=== PATIENT | male | born 1960 | race Two or more races ===

== ENCOUNTER 2021-03-29 17:48 | Inpatient (IN) | payer MEDICAID ==
[~2021-03-29] VITALS: Ht 175.3 cm; Wt 91.2 kg
--- NOTE | 2021-03-29 18:20 | NUR ---
TO ER BED 3, C/O ABDOMINAL PAIN NAUSEA AND VOMITING SINCE YESTERDAY, CHANGED INTO A GOWN ATTACHED TO MONITOR, BREATHING EVEN AND NON LABORED.
--- NOTE | 2021-03-29 18:30 | NUR ---
LAB AT BEDSIDE
[2021-03-29 18:42] LABS: BASOPHILS # (AUTO) 0.1 K/uL (0.0-0.2); BASOPHILS % (AUTO) 1.7 % (0.0-2.0); EOSINOPHILS % (AUTO) 0.6 % (0.0-6.0); HEMATOCRIT 50 % (39-51); HEMOGLOBIN 16.4 g/dL (13.5-17.5); LYMPHOCYTES # (AUTO) 1.2 K/uL (0.8-4.8); LYMPHOCYTES % (AUTO) 23.1 % (20.0-44.0); MEAN CORPUSCULAR HGB CONC 33 g/dl (31.0-36.0); MEAN CORPUSCULAR VOLUME 90 fL (80-96); MONOCYTES # (AUTO) 0.8 K/uL (0.1-1.30); MONOCYTES % (AUTO) 14.6 % (2.0-12.0); NEUTROPHILS # (AUTO) 3.1 K/uL (1.8-8.9); PLATELET COUNT (AUTO) 294 K/uL (150-450); RED BLOOD CELL COUNT(AUTO) 5.55 MIL/uL (4.5-6.0); WHITE BLOOD COUNT (AUTO) 5.2 K/uL (4.3-11.0)
[2021-03-29 18:52] LABS: CALCIUM, SERUM 9.6 mg/dL (8.5-10.1); CARBON DIOXIDE 27 mmol/L (21-32); CHLORIDE 100 mmol/L (98-107); CREATININE 1.4 mg/dL (0.6-1.3); GLUCOSE 150 mg/dL (74-106); POTASSIUM 3.8 mmol/L (3.5-5.1); SODIUM SERUM 139 mmol/L (136-145); UREA NITROGEN, BLOOD 26 mg/dL (7-18)
[2021-03-29 18:58] LABS: ALANINE AMINOTRANSFERASE 18 U/L (12-78); ALBUMIN 4.3 g/dL (3.4-5.0); ALKALINE PHOSPHATASE 66 U/L (46-116); ASPARTATE AMINOTRANSFERASE 18 U/L (15-37); BILIRUBIN,DIRECT 0.2 mg/dL (0.0-0.2); BILIRUBIN,TOTAL 1.2 mg/dL (0.2-1.0); LIPASE 51 U/L (73-393); TOTAL PROTEIN, SERUM 8.1 g/dL (6.4-8.2)
--- NOTE | 2021-03-29 19:09 | NUR ---
URINE SENT TO LAB
[2021-03-29] MEDS ORDERED: IOHEXOL-300 100 ML VIAL IV ONE (19:15)
[2021-03-29] MEDS ORDERED: IV NS 0.9% 250 ML IV ONE (19:16)
[2021-03-29 19:41] LABS: BILIRUBIN,URINE MODERATE (NEGATIVE); COLOR,URINE DARK YELLOW (YELLOW); LEUKOCYTE ESTERASE ,URINE Negative (NEGATIVE); NITRITE, URINE Negative (NEGATIVE); PROTEIN,URINE 30 mg/dl (NEGATIVE); UGLUCOSE Negative (NEGATIVE); UROBILINOGEN,URINE 0.2 EU/dL (0.2)
[2021-03-29 19:43] LABS: BACTERIA,URINE Rare /HPF (None Seen); RBC,URINE NONE SEEN /HPF (0-2); SQUAMOUS EPITHELIAL CELL,UR Few /HPF (None Seen); WBC,URINE NONE SEEN /HPF (0-3)
[2021-03-29] MEDS ORDERED: LIDOCAINE VISCOUS 2% UD 15 ML UDC ONE (20:47)
--- NOTE | 2021-03-29 21:03 | NUR ---
NG TUBE Fr 16 PLACED, CONNECTED TO INTERMITTED SUCTION, AUSCULTATION FOR PLACEMENT.
--- NOTE | 2021-03-29 22:26 | NUR ---
MS 323-1
[2021-03-29] MEDS ORDERED: Z GUARD REMEDY 2 OZ OINT TP PRN (22:30)
[2021-03-29] MEDS ORDERED: MAGNESIUM HYDROXIDE 30 ML UDC PO PRN (22:30)
[2021-03-29] MEDS ORDERED: ONDANSETRON HCL/PF 4 MG/2 ML VIAL IVP PRN (22:30)
--- NOTE | 2021-03-29 22:55 | NUR ---
REPORT GIVEN TO JANAY CHRISTIE
--- NOTE | 2021-03-30 01:11 | NUR ---
MS 102
--- NOTE | 2021-03-30 01:20 | NUR ---
REPORT GIVEN TO JANAY GROSSMAN
--- NOTE | 2021-03-30 01:33 | NUR ---
PATIENT TRANSFERRED , VSS, PATIENT IN NO ACUTE DISTRESS.
--- NOTE | 2021-03-30 01:45 | NUR ---
MS RN ADMITTING NOTES PT ARRIVED TO UNIT VIA GURNEY PT WS ABLE TO WALK TO BED PT HAS STEADY GAIT. PT A/O X4 UGANDAN AND BULGARIAN SPEAKING. NO PAIN OR DISCOMFORT NOTED OR REPORTED AT THIS TIME. PT NOTED WITH NG TUBE 16 FR TO THE RIGHT NOSTRIL. PT HAS IV ACCESS ON THE RAC #18G PATENT FLUSHING WELL. ABDOMEN NON TENDER AND SOFT. PT ORIENTED TO ROOM AND UNIT CALL LIGHT PLACED WITHIN REACH PT MAINTAINED NPO FOR THE TIME BEING PT FOR CONSULT WITH SURGEON IN THE AM REGARDING SBO. ASPIRATION PRECAUTIONS MAINTAINED HOB ELEVATED AT ALL TIMES.PT SKIN INTACT WARM NO DISCOLORATION OR WOUNDS SEEN OR REPORTED. WILL CONTINUE TO MONITOR. Addendum: 03/30/21 at 0236 by NGOC BRONSON RN IV SITE IS LAC
[2021-03-30 02:30] VITALS: BP 145/83
[2021-03-30 02:31] VITALS: BP 145/83
[2021-03-30] MEDS: IV D5/0.45 NACL 1,000 ML IV PRN ×2 (02:36→18:03)
[2021-03-30 04:09] VITALS: BP 145/83
[2021-03-30 04:38] VITALS: BP 132/87
[2021-03-30] MEDS: MORPHINE SULFATE INJ 2 MG/ML DISP.SYRIN IV PRN ×3 (05:24→18:55)
[2021-03-30 06:25] LABS: BASOPHILS % (AUTO) 0.5 % (0.0-2.0); EOSINOPHILS % (AUTO) 1.4 % (0.0-6.0); HEMATOCRIT 46 % (39-51); HEMOGLOBIN 15.7 g/dL (13.5-17.5); LYMPHOCYTES # (AUTO) 1.5 K/uL (0.8-4.8); LYMPHOCYTES % (AUTO) 25.3 % (20.0-44.0); MEAN CORPUSCULAR HGB CONC 34 g/dl (31.0-36.0); MEAN CORPUSCULAR VOLUME 89 fL (80-96); MONOCYTES # (AUTO) 0.8 K/uL (0.1-1.30); NEUTROPHILS # (AUTO) 3.5 K/uL (1.8-8.9); NEUTROPHILS % (AUTO) 58.8 % (43.0-81.0); PLATELET COUNT (AUTO) 261 K/uL (150-450); RED BLOOD CELL COUNT(AUTO) 5.16 MIL/uL (4.5-6.0); WHITE BLOOD COUNT (AUTO) 5.9 K/uL (4.3-11.0)
--- NOTE | 2021-03-30 06:36 | NUR ---
RN NOTES PT A/O X4 GUINEAN AND DIVEHI SPEAKING. NO PAIN OR DISCOMFORT NOTED OR REPORTED AT THIS TIME. PT WITH NG TUBE 16 FR TOT HE RIGHT NOSTRIL WITH LOW INTERMITTENT SUCTION OUTPUT OF 100 ML. PT HAS IV ACCESS ON THE RAC #18G RUNNING D5 1/2 NS @ 50ML/HR CALL LIGHT PLACED WITHIN REACH PT MAINTAINED NPO FOR THE TIME BEING PT FOR CONSULT WITH SURGEON IN THE AM REGARDING SBO. ASPIRATION PRECAUTIONS MAINTAINED HOB ELEVATED AT ALL TIMES. WILL ENDORSE CARE TO DAY SHIFT NURSE.
[2021-03-30] MEDS ORDERED: ACET325T53 PO (07:37)
--- NOTE | 2021-03-30 08:06 | NUR ---
RN OPENING NOTES RECEIVED PATIENT AWAKE IN BED, ALERT AND ORIENTED X 4, SLOVAK AND GERMAN SPEAKING. NO SOB. BREATHING IS EVEN AND UNLABORED. NO S/S OF DISTRESS NOTED. PT ON RIGHT NG TUBE PLACEMENT WITH LOW INTERMITTENT SUCTIONING.IV ACCESS RAC#18 PATENT AND INTACT. SAFETY MEASURES IN PLACE WITH BED LOCKED AT LOW POSITION AND SIDE RAILS UP X2. CALL LIGHT IS WITHIN REACH. WILL CONTINUE TO MONITOR THROUGHOUT SHIFT.
[2021-03-30] MEDS: PANTOPRAZOLE 40 MG VIAL IV SCH (08:58)
[2021-03-30 09:27] LABS: THYROID STIMULATING HORMONE 0.439 uIU/mL (0.358-3.74)
[2021-03-30 09:28] LABS: POTASSIUM 4.4 mmol/L (3.5-5.1)
[2021-03-30 09:29] LABS: BILIRUBIN,DIRECT 0.1 mg/dL (0.0-0.2); CALCIUM, SERUM 8.9 mg/dL (8.5-10.1); CREATININE 1.3 mg/dL (0.6-1.3); PHOSPHORUS 4.4 mg/dL (2.5-4.9)
[2021-03-30 09:30] LABS: MAGNESIUM 2.2 mg/dL (1.8-2.4)
[2021-03-30 12:00] VITALS: BP 134/90
[2021-03-30] MEDS ORDERED: DIATR MEGLU/DIATRIZOATE SODIUM 120 ML BOTTLE (GASTROGRAPHIN) ONE (15:57)
--- NOTE | 2021-03-30 18:15 | NUR ---
RN NOTES PT RETURNED FROM XRAY SMALL BOWEL FOLLOW THROUGH. NG TUBE ACCIDENTALLY REMOVED DURING PROCEDURE PER X-RAY TECH.
--- NOTE | 2021-03-30 18:44 | NUR ---
RN CLOSING NOTES PT IS RESTING IN BED COMFORTABLY WITH AT BEDSIDE. NO S/S OF DISTRESS NOTED. NO SOB. BREATHING IS EVEN AND UNLABORED. IV ACCESS LAC#18 PATENT AND INTACT WITH D5 1/2 NS RUNNING @50MLS/HR. SAFETY MEASURES MAINTAINED WITH BED AT LOW POSITION AND SIDE RAILS UP X2. CALL LIGHT IS WITHIN REACH. ALL NEEDS MET THROUGHOUT SHIFT. WILL ENDORSE CONTINUITY OF CARE TO ONCOMING SHIFT.
--- NOTE | 2021-03-30 18:59 | NUR ---
RN NOTES PT REFUSED REINSERTION OF NG TUBE AT THIS TIME AND STATES HE WOULD LIKE IT OFF FOR NOW IT IS UNCOMFORTABLE. WILL ENDORSE TO ONCOMING SHIFT FOR REINSERTION WHEN PT IS READY.
[2021-03-30 20:00] VITALS: BP 133/84
--- NOTE | 2021-03-31 | NUR ---
RN NOTE PT AGREEABLE TO REINSERT NGT. REINSERTED NGT #[id number] AND LYRIC WELL. XRAY WILL BE DONE TO VERIFY PLACEMENT.
--- NOTE | 2021-03-31 00:15 | NUR ---
RN NOTE XRAY ABD DONE. AWAITING RESULT
[2021-03-31 04:00] VITALS: BP 119/85
[2021-03-31] MEDS: MORPHINE SULFATE INJ 2 MG/ML DISP.SYRIN IV PRN (04:17)
--- NOTE | 2021-03-31 07:20 | NUR ---
RN CLOSING NOTE PT RESTING IN BED, DENIES PAIN AT THIS TIME. RESPIRATIONS EVEN/UNLABORED. WITH NGT IN PLACE, CONNECTED TO LOW INTERMITTENT SUCTION. KEPT HOB ELEVATED. PT IS AMBULATORY W/STEADY GAIT AND USED BR NEEDED. NO ACUTE EVENTS DURING THE NIGHT. ENDORSED TO NEXT SHIFT NURSE.
--- NOTE | 2021-03-31 07:34 | NUR ---
RN OPENING NOTE PATIENT RECEIVED IN BED, SLEEPING. ON ROOM AIR WITH NO SIGNS OF LABORED BREATHING. NG TUBE IN PLACE AND ON SUCTION. L AC 18G PIV IN PLACE AND RUNNING D5 1/2NS AT 50CC/HR. BED LOCKED AND IN LOWEST POSITION, 3 SIDE RAILS UP, CALL LIGHT WITHIN REACH. WILL CONTINUE TO MONITOR.
[2021-03-31 08:00] VITALS: BP 131/82
[2021-03-31] MEDS: PANTOPRAZOLE 40 MG VIAL IV SCH (08:31)
[2021-03-31 12:00] VITALS: BP 131/82
[2021-03-31 16:00] VITALS: BP 130/79
--- NOTE | 2021-03-31 19:30 | NUR ---
RN CLOSING NOTE PATIENT IN BED, AWAKE, A&O X4. PATIENT ON ROOM AIR WITH NO SIGNS OF LABORED BREATHING. NG TUBE IN PLACE. L AC PIV IN PLACE AND PATENT, RUNNING D5 1/2NS AT 50CC/HR. BED LOCKED AND IN LOWEST POSITION, 3 SIDE RAILS UP, CALL LIGHT WITHIN REACH. WILL ENDORSE TO SALES AND SERVICE ADVISOR NURSE
--- NOTE | 2021-03-31 19:45 | NUR ---
RN OPENING NOTE, RECEIVED PT IN BED, AWAKE A/O X4 FAMILY AT BEDSIDE, ON ROOM AIR WITH NO SOB/ACUTE DISTRESS NOTED, BREATHING EVEN AND UNLABORED, DENIES DISCOMFORT, DENIES N/V, NG TUBE IN PLACE CLAMPED, PATIENT IN LIQUID DIET LYRIC, IV LINE IN LEFT AC 18G RUNNING D5 1/2NS AT 50CC/HR, NO S/S OF INFILTRATION NOTED, BED LOCKED AND IN LOWEST POSITION, 2 SIDE RAILS UP, CALL LIGHT WITHIN REACH, WILL CONTINUE TO MONITOR CLOSELY.
[2021-03-31 20:00] VITALS: BP 133/86
[2021-03-31] MEDS: MAG HYDROX/AL HYDROX/SIMETH 30 ML UDC PO PRN (20:47)
[2021-03-31] MEDS: ACETAMINOPHEN 325 MG TABLET PO PRN (20:47)
[2021-04-01 04:00] VITALS: BP 141/77
[2021-04-01 06:17] LABS: BASOPHILS % (AUTO) 0.5 % (0.0-2.0); EOSINOPHILS % (AUTO) 2.4 % (0.0-6.0); HEMATOCRIT 43 % (39-51); HEMOGLOBIN 14.3 g/dL (13.5-17.5); LYMPHOCYTES # (AUTO) 1.4 K/uL (0.8-4.8); LYMPHOCYTES % (AUTO) 26.6 % (20.0-44.0); MEAN CORPUSCULAR HGB CONC 33 g/dl (31.0-36.0); MEAN CORPUSCULAR VOLUME 90 fL (80-96); MONOCYTES # (AUTO) 0.7 K/uL (0.1-1.30); MONOCYTES % (AUTO) 12.6 % (2.0-12.0); NEUTROPHILS % (AUTO) 57.9 % (43.0-81.0); PLATELET COUNT (AUTO) 247 K/uL (150-450); RED BLOOD CELL COUNT(AUTO) 4.74 MIL/uL (4.5-6.0); WHITE BLOOD COUNT (AUTO) 5.2 K/uL (4.3-11.0)
--- NOTE | 2021-04-01 06:42 | NUR ---
RN CLOSING NOTE, PT IN BED, AWAKE A/O X4 FAMILY, CONT ON ROOM AIR WITH NO SOB/ACUTE DISTRESS NOTED, BREATHING EVEN AND UNLABORED, DENIES DISCOMFORT, DENIES N/V, AND PAIN AT THIS TIME, NG TUBE IN PLACE CLAMPED, PATIENT IN LIQUID DIET LYRIC, NO SIGNIFICANT CHANGE IN CONDITION DURING THE NIGHT, BED LOCKED AND IN LOWEST POSITION, 2 SIDE RAILS UP, CALL LIGHT WITHIN REACH, WILL ENDORSE CONTINUITY OF CARE TO ONCOMING NURSE.
[2021-04-01 06:47] LABS: CALCIUM, SERUM 8.4 mg/dL (8.5-10.1); CREATININE 0.9 mg/dL (0.6-1.3); MAGNESIUM 2.2 mg/dL (1.8-2.4); PHOSPHORUS 3.4 mg/dL (2.5-4.9); POTASSIUM 3.9 mmol/L (3.5-5.1)
--- NOTE | 2021-04-01 07:28 | NUR ---
RN OPENING NOTE PATIENT RECEIVED IN BED, ASLEEP. ON ROOM AIR WITH NO SIGNS OF LABORED BREATHING AT THIS TIME. R NOSTRIL NG TUBE IN PLACE. L AC 18G IN PLACE RUNNING D5 1/2NS AT 50CC/HR. BED LOCKED AND IN LOWEST POSITION, 3 SIDE RAILS UP, CALL LIGHT WITHIN REACH. WILL CONTINUE TO MONITOR.
[2021-04-01] MEDS: PANTOPRAZOLE 40 MG VIAL IV SCH (08:39)
[2021-04-01] MEDS: IV D5/0.45 NACL 1,000 ML IV PRN (09:58)
--- NOTE | 2021-04-01 12:37 | NUR ---
RN NOTE NG TUBE D/C PER ORDER.
[2021-04-01] MEDS: ACETAMINOPHEN 325 MG TABLET PO PRN ×2 (13:54→19:28)
[2021-04-01] MEDS: MAG HYDROX/AL HYDROX/SIMETH 30 ML UDC PO PRN ×2 (13:54→19:29)
[2021-04-01 16:00] VITALS: BP 126/78
--- NOTE | 2021-04-01 18:51 | NUR ---
RN CLOSING NOTE PATIENT AWAKE, A&OX4. ON ROOM AIR WITH NO SIGNS OF LABORED BREATHING AT THIS TIME. L AC 18G IN PLACE RUNNING D5 1/2 NS AT 50 CC/HR. BED LOCKED AND IN LOWEST POSITION, 3 SIDE RAILS UP, CALL LIGHT WITHIN REACH. ALL SAFETY MEASURES IMPLEMENTED. WILL ENDORSE TO HAND BENDER NURSE.
--- NOTE | 2021-04-01 19:45 | NUR ---
RN OPENING NOTE, PATIENT AWAKE, A/OX4, AT ROOM AIR , NO SIGNS SOB/ACUTE DISTRESS NOTED AT THIS TIME, DAUGHTER AT BEDSIDE, LEFT AC 18G REMOVED AT THIS TIME, PATIENT IS BEING DISCHARGE, DISCHARGE PAPERWORK GIVEN TO PATIENT, HE TOOK ALL BELONGINGS WITH HIM AND SIGNED THE BELONGINGS INVENTORY THAT HE RECEIVED ALL, DISCHARGE INSTRUCTIONS PROVIDED, AND HE VERBALIZED UNDERSTANDING, VS 119/63, 60, 18, 98.1, 95% RA, PATIENT LEFT IN COMPANY OF DAUGHTER AT THIS TIME, THEY LEAVING IN PRIVATE VEHICLE.
[2021-04-02] MEDS ORDERED: PANTOPRAZOLE 40 MG/PACK PACK GT SCH (09:00)
== END 2021-04-01 20:42 | disposition home or self-care (01) | DRG 247 ==
LOC: ER 17:51 → MED 23:03 → MEDSG1 03-30 01:11
PROVIDERS: ADMIT Registered Nurse; ATTEND Nurse Practitioner Acute Care
DX: K56.609 Unspecified intestinal obstruction, unspecified as to partial versus complete obstruction (principal); N17.0 Acute kidney failure with tubular necrosis; E86.0 Dehydration; E66.9 Obesity, unspecified; I50.9 Heart failure, unspecified; Z20.822 Contact with and (suspected) exposure to COVID-19; S31.139S Puncture wound of abdominal wall without foreign body, unspecified quadrant without penetration into peritoneal cavity, sequela; W34.00XS Accidental discharge from unspecified firearms or gun, sequela; Z98.890 Other specified postprocedural states; Z88.0 Allergy status to penicillin; K40.90 Unilateral inguinal hernia, without obstruction or gangrene, not specified as recurrent; K42.9 Umbilical hernia without obstruction or gangrene; K43.9 Ventral hernia without obstruction or gangrene; K57.90 Diverticulosis of intestine, part unspecified, without perforation or abscess without bleeding; K76.0 Fatty (change of) liver, not elsewhere classified; N32.89 Other specified disorders of bladder; Z68.31 Body mass index [BMI] 31.0-31.9, adult; Z96.659 Presence of unspecified artificial knee joint; K56.7 Ileus, unspecified
CPT/HCPCS: 36415; 71045-TC; 74018; 74250-TC; 80048-TC; 80061-TC; 80076-TC; 81001; 82247-TC; 82248-TC; 83690-TC; 83735-TC; 84100-TC; 84443-TC; 84484-TC; 85025-TC; 87081-TC; C9113; C9803; G0378; J2270; J3490; J7050; Q9963; Q9967